=== PATIENT | male | born 1950 | race Caucasian/White ===

== ENCOUNTER 2016-07-07 18:19 | Observation (INO) | payer OTHER ==
[~2016-07-07] VITALS: Ht 165.1 cm; Wt 84.5 kg
[~2016-07-07 18:19] MED LIST: ADVAIR 250/501 DISK IH; ADVAIR HFA120 INHAL1 IH; ADVAIR HFA120 INHALA; ADVAIR HFA120 INHALA IH; ALTACE10 MG PO; Advair HFA 115/21 IH; CALCITRIOL0.25 MC1 PO; CALCITRIOL0.25 MCG PO; CALCIUM + VITA1 EACH PO; CALCIUM 500 +1 EAC2 PO; CALCIUM 600 +1 EAC4 PO; CALCIUM WITH V PO; CALCIUM600 M1 PO; CALCIUM600 MG PO; CALTRATE 6001 TABLE2 PO; CIPRO250 MG PO; COMBIVENT RESPIM4 GM IH; COMBIVENT200 INHALA IH; COUMADIN,JANTOVE1 MG PO; CYCLOBENZAPRINE10 MG PO; Combivent IH; DALIRESP500 MCG PO; DEPAKOTE ER500 MG PO; DEPAKOTE500 MG PO; DIAZEPAM10 MG PO; DIAZEPAM5 MG PO; ENDOCET 5-3251 EACH PO; FEOSOL325 MG PO; FEROSUL325 MG PO; FLOMAX0.4 MG; FLOMAX0.4 MG PO; Flagyl PO; Flomax PO; HYDROCODON-ACE1 EAC7 PO; Habitrol,Nicoderm CQ TD; IBUPROFEN800 MG PO; INDERAL40 MG PO; IRON325 M1 PO; IRON325 MG PO; KEFLEX500 MG PO; LEVAQUIN500 MG PO; LEVAQUIN750 MG PO; LEVOTHYROXINE50 MCG PO; LIDODERM 5% P1 PATCH TD; LOMOTIL TABLET1 EACH PO; LOPERAMIDE2 M1 PO; LOPERAMIDE2 MG PO; MULTIVITAMIN1 EAC2 PO; MYSOLINE50 MG PO; NEXIUM40 MG PO; NICOTINE PATCH1 EAC1 TD; NICOTROL INHALE10 MG IH; NORCO 5/3251 TABLET PO; OMEGA-3 1,0001 EACH PO; ONE-A-DAY ESSE1 EAC1 PO; OXCARBAZEPINE600 MG PO; OXYCODONE-APAP1 EAC6 PO; Omnicef PO; PEPCID40 MG PO; PERCOCET 7.51 TABLET PO; PREDNISONE10 MG PO; PREDNISONE20 MG PO; PREVALITE PACKET4 GM PO; PRIMIDONE50 MG PO; PROBIOTIC1 EAC1 PO; PROPRANOLOL HCL10 MG PO; PROPRANOLOL HCL20 MG PO; PROPRANOLOL HCL40 MG PO; PROVENTIL,2.5 MG/3 M IH; PROVENTIL2.5 MG/3 M IH; QUETIAPINE FUM200 MG PO; ROCALTROL0.25 MCG PO; Rocaltrol PO; SEROQUEL12.5 MG PO; SEROQUEL200 MG PO; SERTRALINE HCL100 MG PO; SIMVASTATIN20 MG PO; SPIRIVA1 INHALATI IH; SYNTHROID50 MCG PO; TAMSULOSIN HCL0.4 MG PO; THERAGRAN1 TABLET PO; Tylenol Regular Stre PO; VALIUM10 MG PO; VANCOMYCIN125 MG/2.5 PO; ZOCOR20 MG PO; ZOFRAN4 MG PO; ZOLOFT100 M1 PO; ZOLOFT100 MG PO; Zestril,Prinivil PO; Zithromax PO; Zocor PO; Zoloft PO
[2016-07-07 18:59] LABS: HEMATOCRIT 36.5 % (38.0-50.0); MCH 30.2 PG (29.0-34.0); MCHC 34.5 G/DL (30.0-36.0); MCV 87.5 FL (86-99); MEAN PLAT.VOLUME 8.4 uM^3 (9.0-12.4); PLATELET COUNT 132 K/uL (156-360); RBC DIS.WIDTH-CV 13.5 % (11.8-14.6); RBC DIS.WIDTH-SD 41.9 % (39-53); RED BLOOD COUNT 4.17 M/uL (4.00-5.50); WHITE BLOOD COUNT 6.5 K/uL (4.1-10.2)
[2016-07-07 19:09] LABS: CHLORIDE 106 mEq/L (99-109); POTASSIUM 4.3 mEq/L (3.7-5.4); SODIUM 136 mEq/L (136-147)
[2016-07-07 19:10] LABS: INTER. NORMALIZED RATIO 1.2; PROTHROMBIN TIME 12.1 (9.2-11.2)
[2016-07-07 19:11] LABS: GLUCOSE 132 mg/dL (70-99)
[2016-07-07 19:12] LABS: ANION GAP 12 MEQ/L (2-14)
[2016-07-07 19:14] LABS: GFR ESTIMATE (CALCULATED) 38 mL/min/
[2016-07-07 19:15] LABS: UREA NITROGEN (BUN) 29 mg/dL (9-23)
[2016-07-07 19:22] LABS: TROP-I INTERPRETATION NEGATIVE; TROPONIN-I < 0.01 ng/mL (0.0-0.30)
[2016-07-07] MEDS ORDERED: SPIRIVA1 INHALATI IH (20:27)
[2016-07-07] MEDS ORDERED: IMODIUM A-D2 M2 PO ×2 (20:30→20:31)
[2016-07-07] MEDS ORDERED: NEURONTIN100 MG PO (20:30)
[2016-07-07] MEDS ORDERED: EXCEDRIN MIGRA1 EAC3 PO (20:31)
[2016-07-07] MEDS ORDERED: OMEPRAZOLE40 M1 PO (20:31)
[2016-07-07 22:41] LABS: HDL CHOLESTEROL 30 MG/DL (Desirable>=40); LDL CHOLESTEROL 96 mg/dL (Desirable<100); NON-HDL CHOLESTEROL 142 mg/dL (Desirable<160); TOTAL CHOLESTEROL 172 mg/dL (Desirable<200); TRIGLYCERIDES 228 MG/DL (Normal: <150)
[2016-07-07 23:05] VITALS: BP 117/77
[2016-07-08 05:16] VITALS: BP 147/88
[2016-07-08 07:02] LABS: Estimated Average Glucose 120 mg/dL (70-123); HEMOGLOBIN A1c (GLYCOHEMOGLOB) 5.8 % HGB (Below 5.7)
[2016-07-08 07:10] VITALS: BP 135/84
[2016-07-08 07:38] LABS: HEMATOCRIT 36.5 % (38.0-50.0); MCH 32.2 PG (29.0-34.0); MCHC 35.3 G/DL (30.0-36.0); MEAN PLAT.VOLUME 9.6 uM^3 (9.0-12.4); PLATELET COUNT 133 K/uL (156-360); RBC DIS.WIDTH-SD 46.2 % (39-53); RED BLOOD COUNT 4.01 M/uL (4.00-5.50); WHITE BLOOD COUNT 6.5 K/uL (4.1-10.2)
[2016-07-08 08:07] LABS: ALKALINE PHOSPHATASE 85 IU/L (3-129); ANION GAP 12 MEQ/L (2-14); CHLORIDE 105 MEQ/L (99-109); GFR ESTIMATE (CALCULATED) 59 mL/min/; POTASSIUM 4.3 MEQ/L (3.7-5.4); SAMPLE HEMOLYSIS CHECK 0; SAMPLE ICTERIC CHECK 0; SAMPLE LIPEMIA CHECK 0; SODIUM 139 MEQ/L (136-147); TOTAL BILIRUBIN 0.4 MG/DL (0.0-1.0); UREA NITROGEN (BUN) 27 mg/dL (9-23)
[2016-07-08 08:17] LABS: GLUCOSE 94 mg/dL (70-99)
[2016-07-08 10:54] VITALS: BP 140/76
== END 2016-07-08 12:56 | disposition home or self-care (01) ==
LOC: EME 18:19 → 5WEST 20:51 → EDOF 20:51 → 5WEST 22:51
PROVIDERS: Emergency Medicine; Internal Medicine
DX: R42 Dizziness and giddiness (principal); R53.1 Weakness; R41.0 Disorientation, unspecified; R47.89 Other speech disturbances; R25.1 Tremor, unspecified; J44.9 Chronic obstructive pulmonary disease, unspecified; Z87.891 Personal history of nicotine dependence; I12.9 Hypertensive chronic kidney disease with stage 1 through stage 4 chronic kidney disease, or unspecified chronic kidney disease; N18.3 Chronic kidney disease, stage 3 (moderate); F31.9 Bipolar disorder, unspecified; F41.9 Anxiety disorder, unspecified; E03.9 Hypothyroidism, unspecified; E78.00 Pure hypercholesterolemia, unspecified; K21.9 Gastro-esophageal reflux disease without esophagitis; Z91.19 Patient's noncompliance with other medical treatment and regimen; Z88.0 Allergy status to penicillin; E86.0 Dehydration
CPT/HCPCS: 70450; 70551; 71020; 80048; 80053; 80061; 83036; 84484; 85027; 85610; 85730; 93005; 93880; 94660; 99202; 99281; 99285; G0378; J1644; J7030

== ENCOUNTER 2016-07-14 10:39 | Inpatient (IN) | payer OTHER ==
[~2016-07-14] VITALS: Ht 165.1 cm; Wt 87.5 kg
[~2016-07-14 10:39] MED LIST changes: +EXCEDRIN MIGRA1 EAC3 PO; +IMODIUM A-D2 M2 PO; +NEURONTIN100 MG PO; +OMEPRAZOLE40 M1 PO
[2016-07-14 11:27] LABS: HEMATOCRIT 32.6 % (38.0-50.0); MCH 29.8 PG (29.0-34.0); MCHC 32.8 G/DL (30.0-36.0); MCV 90.8 FL (86-99); MEAN PLAT.VOLUME 9.1 uM^3 (9.0-12.4); NRBC (%) 0.2 /100 WBC (0-0); PLATELET COUNT 130 K/uL (156-360); RBC DIS.WIDTH-CV 13.8 % (11.8-14.6); RBC DIS.WIDTH-SD 46.2 % (39-53); RED BLOOD COUNT 3.59 M/uL (4.00-5.50)
[2016-07-14 11:38] LABS: CHLORIDE 101 mEq/L (99-109); POTASSIUM 4.2 mEq/L (3.7-5.4); SODIUM 137 mEq/L (136-147)
[2016-07-14 11:40] LABS: GLUCOSE 87 mg/dL (70-99)
[2016-07-14 11:42] LABS: ANION GAP 12 MEQ/L (2-14)
[2016-07-14 11:44] LABS: GFR ESTIMATE (CALCULATED) 38 mL/min/
[2016-07-14 11:45] LABS: UREA NITROGEN (BUN) 24 mg/dL (9-23)
[2016-07-14 12:04] LABS: WHITE BLOOD COUNT 12.4 K/uL (4.1-10.2)
[2016-07-14] MEDS ORDERED: COMBIVENT RESPIM4 GM IH (16:16)
[2016-07-14] MEDS ORDERED: CALCIUM 600 +1 EA17 PO (16:17)
[2016-07-14] MEDS ORDERED: LOMOTIL TABLET1 EACH PO (16:19)
[2016-07-14] MEDS ORDERED: NEXIUM40 MG PO (16:21)
[2016-07-14] MEDS ORDERED: ADVAIR HFA120 INHAL1 IH (16:21)
[2016-07-14] MEDS ORDERED: SEROQUEL100 MG PO (16:28)
[2016-07-14] MEDS ORDERED: TAMSULOSIN HCL0.4 MG PO (16:29)
[2016-07-14 16:33] LABS: ADD MIUA? YES; BILIRUBIN NEGATIVE; BLOOD MODERATE; COLOR YELLOW ((YELLOW)); GLUCOSE (STRIP) NEGATIVE; KETONES NEGATIVE; LEUKOCYTES NEGATIVE; NITRITE NEGATIVE; PROTEIN (STRIP) NEGATIVE; SPECIFIC GRAVITY 1.018 (1.000-1.030); UROBILINOGEN 0.2 MG/DL (0.2-1.0)
[2016-07-14 17:04] LABS: INFLUENZA A VIRAL ANTIGEN NEGATIVE; INFLUENZA B VIRAL ANTIGEN NEGATIVE
[2016-07-14 17:16] LABS: BACTERIA NONE SEEN /HPF; EPITHELIAL CELLS RARE /HPF; HYALINE CASTS 0-5 /LPF; MUCUS NONE SEEN /LPF; UCUL ADDED? NO; WHITE BLOOD CELLS 0-5 /HPF (0-5)
[2016-07-14 20:22] VITALS: BP 148/83
[2016-07-14 23:43] VITALS: BP 121/75
[2016-07-15 03:56] VITALS: BP 132/70
[2016-07-15 05:50] LABS: HEMATOCRIT 33.6 % (38.0-50.0); MCH 30.2 PG (29.0-34.0); MCHC 32.7 G/DL (30.0-36.0); MCV 92.3 FL (86-99); NRBC (%) 0.2 /100 WBC (0-0); PLATELET COUNT 145 K/uL (156-360); RBC DIS.WIDTH-CV 13.9 % (11.8-14.6); RBC DIS.WIDTH-SD 47.3 % (39-53); RED BLOOD COUNT 3.64 M/uL (4.00-5.50); WHITE BLOOD COUNT 12.1 K/uL (4.1-10.2)
[2016-07-15 06:34] LABS: ANION GAP 11 MEQ/L (2-14); CHLORIDE 104 MEQ/L (99-109); GFR ESTIMATE (CALCULATED) 50 mL/min/; POTASSIUM 4.6 MEQ/L (3.7-5.4); SAMPLE HEMOLYSIS CHECK 0; SAMPLE ICTERIC CHECK 0; SAMPLE LIPEMIA CHECK 0; SODIUM 140 MEQ/L (136-147); UREA NITROGEN (BUN) 24 mg/dL (9-23)
[2016-07-15 06:36] LABS: GLUCOSE 134 mg/dL (70-99)
[2016-07-15 07:30] VITALS: BP 144/88
[2016-07-15 12:30] VITALS: BP 147/69
[2016-07-15 15:40] VITALS: BP 135/72
[2016-07-15 18:50] LABS: INTER. NORMALIZED RATIO 1.3; PROTHROMBIN TIME 13.4 (9.2-11.2); PTT 33.8 (25-32)
[2016-07-15 19:25] VITALS: BP 115/71
[2016-07-16 01:51] VITALS: BP 111/66
[2016-07-16 06:27] LABS: HEMATOCRIT 34.4 % (38.0-50.0); MCHC 32.3 G/DL (30.0-36.0); MEAN PLAT.VOLUME 9.5 uM^3 (9.0-12.4); NRBC (%) 0.5 /100 WBC (0-0); PLATELET COUNT 156 K/uL (156-360); RBC DIS.WIDTH-SD 47.8 % (39-53); WHITE BLOOD COUNT 9.7 K/uL (4.1-10.2)
[2016-07-16 06:51] LABS: ANION GAP 10 MEQ/L (2-14); CHLORIDE 102 MEQ/L (99-109); GFR ESTIMATE (CALCULATED) 54 mL/min/; GLUCOSE 128 mg/dL (70-99); POTASSIUM 4.3 MEQ/L (3.7-5.4); SAMPLE HEMOLYSIS CHECK 0; SAMPLE ICTERIC CHECK 0; SAMPLE LIPEMIA CHECK 0; SODIUM 140 MEQ/L (136-147); UREA NITROGEN (BUN) 33 mg/dL (9-23)
[2016-07-16 08:05] VITALS: BP 157/75
[2016-07-16 08:57] LABS: INTERNAL CONTROL VALID? YES
[2016-07-16] MEDS ORDERED: PREDNISONE10 MG PO (14:14)
[2016-07-16] MEDS ORDERED: LEVAQUIN500 MG PO (14:14)
== END 2016-07-16 15:08 | disposition home or self-care (01) | DRG 190 ==
LOC: EME 10:39 → 4EAST 15:08 → EDOF 15:08 → 4EAST 16:45 → 5SOUTH 07-16 01:50
PROVIDERS: Emergency Medicine; Hospitalist; Internal Medicine; Internal Medicine Pulmonary Disease
DX: J44.0 Chronic obstructive pulmonary disease with (acute) lower respiratory infection (principal); J18.0 Bronchopneumonia, unspecified organism; J96.20 Acute and chronic respiratory failure, unspecified whether with hypoxia or hypercapnia; J44.1 Chronic obstructive pulmonary disease with (acute) exacerbation; R04.2 Hemoptysis; N17.9 Acute kidney failure, unspecified; I12.9 Hypertensive chronic kidney disease with stage 1 through stage 4 chronic kidney disease, or unspecified chronic kidney disease; N18.3 Chronic kidney disease, stage 3 (moderate); G47.33 Obstructive sleep apnea (adult) (pediatric); E78.5 Hyperlipidemia, unspecified; K21.9 Gastro-esophageal reflux disease without esophagitis; G40.909 Epilepsy, unspecified, not intractable, without status epilepticus; F31.9 Bipolar disorder, unspecified; F41.9 Anxiety disorder, unspecified; E03.9 Hypothyroidism, unspecified; Z96.651 Presence of right artificial knee joint; Z99.81 Dependence on supplemental oxygen; Z88.0 Allergy status to penicillin; Z88.5 Allergy status to narcotic agent; Z87.891 Personal history of nicotine dependence
CPT/HCPCS: 71020; 71250; 78582; 80048; 81003; 83605; 85027; 85610; 85730; 87040; 87449; 87502; 93005; 93970; 94640; 94640 76; 94760; 94799; 99202; 99281; 99285; A9540; A9567; J1650; J1956; J2920; J2930; J3370

== ENCOUNTER → 2016-11-23 | Outpatient (CLI) | payer OTHER ==
[~2016-11-23] VITALS: Ht 165.1 cm; Wt 83.5 kg
[~2016-11-23] MED LIST changes: +ANTI-DIARRHEA2 MG PO; +CALCIUM 600 +1 EA16 PO; +CALCIUM 600 +1 EA17 PO; +QUESTRAN PACKET4 GM PO; +SEROQUEL100 MG PO
== END | disposition home or self-care (01) ==
LOC: AMB 11:30
DX: K22.70 Barrett's esophagus without dysplasia (principal); K44.9 Diaphragmatic hernia without obstruction or gangrene; Z86.018 Personal history of other benign neoplasm; R10.13 Epigastric pain; Z90.49 Acquired absence of other specified parts of digestive tract; Z86.010 Personal history of colon polyps; J44.9 Chronic obstructive pulmonary disease, unspecified; K21.9 Gastro-esophageal reflux disease without esophagitis; G40.909 Epilepsy, unspecified, not intractable, without status epilepticus; E78.5 Hyperlipidemia, unspecified; E03.9 Hypothyroidism, unspecified; F31.81 Bipolar II disorder; E20.9 Hypoparathyroidism, unspecified; Z88.0 Allergy status to penicillin; Z88.5 Allergy status to narcotic agent
CPT/HCPCS: 88305; 88313; 88342 TC

== ENCOUNTER 2016-12-15 12:40 | Inpatient (IN) | payer OTHER ==
[~2016-12-15] VITALS: Ht 165.1 cm; Wt 85.0 kg
[2016-12-15 13:53] LABS: HEMATOCRIT 41.5 % (38.0-50.0); MCH 31.2 PG (29.0-34.0); MCHC 34.5 G/DL (30.0-36.0); MCV 90.4 FL (86-99); PLATELET COUNT 172 K/uL (156-360); RBC DIS.WIDTH-CV 13.2 % (11.8-14.6); RBC DIS.WIDTH-SD 43.2 % (39-53); RED BLOOD COUNT 4.59 M/uL (4.00-5.50); WHITE BLOOD COUNT 9.9 K/uL (4.1-10.2)
[2016-12-15 14:01] LABS: CHLORIDE 109 mEq/L (99-109); POTASSIUM 4.1 mEq/L (3.7-5.4); SODIUM 132 mEq/L (136-147)
[2016-12-15 14:03] LABS: GLUCOSE 102 mg/dL (70-99)
[2016-12-15 14:04] LABS: ANION GAP 14 MEQ/L (2-14)
[2016-12-15 14:06] LABS: GFR ESTIMATE (CALCULATED) 30 mL/min/
[2016-12-15 14:07] LABS: UREA NITROGEN (BUN) 56 mg/dL (9-23)
[2016-12-15 14:12] LABS: TROP-I INTERPRETATION NEGATIVE; TROPONIN-I < 0.01 ng/mL (0.0-0.30)
[2016-12-15 18:30] VITALS: BP 131/73
[2016-12-15 19:33] LABS: C DIFF TOXIN NEGATIVE (NEGATIVE)
[2016-12-15 19:48] LABS: PROBE CHECK PASS; SPECIMEN PROCESSING CONTROL PASS
[2016-12-15 20:00] VITALS: BP 130/71
[2016-12-15 20:43] LABS: TROP-I INTERPRETATION NEGATIVE; TROPONIN-I < 0.01 ng/mL (0.0-0.30)
[2016-12-15 23:55] VITALS: BP 129/69
[2016-12-16 02:37] LABS: TROP-I INTERPRETATION NEGATIVE; TROPONIN-I < 0.01 ng/mL (0.0-0.30)
[2016-12-16 04:00] VITALS: BP 146/78
[2016-12-16 04:58] LABS: CHLORIDE 109 mEq/L (99-109); POTASSIUM 3.4 mEq/L (3.7-5.4); SODIUM 137 mEq/L (136-147)
[2016-12-16 04:59] LABS: GLUCOSE 107 mg/dL (70-99)
[2016-12-16 05:01] LABS: ANION GAP 11 MEQ/L (2-14)
[2016-12-16 05:03] LABS: HEMATOCRIT 33.2 % (38.0-50.0); MCH 31.5 PG (29.0-34.0); MCHC 34.9 G/DL (30.0-36.0); MCV 90.2 FL (86-99); MEAN PLAT.VOLUME 9.1 uM^3 (9.0-12.4); PLATELET COUNT 145 K/uL (156-360); RBC DIS.WIDTH-CV 13.2 % (11.8-14.6); RBC DIS.WIDTH-SD 43.5 % (39-53); RED BLOOD COUNT 3.68 M/uL (4.00-5.50); WHITE BLOOD COUNT 8.3 K/uL (4.1-10.2)
[2016-12-16 05:04] LABS: UREA NITROGEN (BUN) 38 mg/dL (9-23)
[2016-12-16 05:15] LABS: GFR ESTIMATE (CALCULATED) 59 mL/min/
[2016-12-16 08:12] VITALS: BP 140/81
[2016-12-16 11:22] VITALS: BP 158/79
[2016-12-16 16:30] VITALS: BP 154/71
[2016-12-16 19:21] VITALS: BP 169/76
[2016-12-16 22:17] LABS: EOSINOPHIL (%) 0.2 % (0-5); HEMATOCRIT 34.9 % (38.0-50.0); IMMATURE GRANULOCYTE (%) 0.9 % (0.0-0.7); IMMATURE GRANULOCYTE COUNT 0.1 K/uL; INSTRUMENT ABS NEUTROPHIL CT 4.1 K/uL; LYMPHOCYTE COUNT 1.2 K/uL (1.0-2.8); MCH 31.2 PG (29.0-34.0); MCHC 35.2 G/DL (30.0-36.0); MCV 88.6 FL (86-99); MEAN PLAT.VOLUME 8.9 uM^3 (9.0-12.4); MONOCYTE COUNT 0.5 K/uL (0-0.8); NEUTROPHIL COUNT 4.1 K/uL (1.8-6.4); PLATELET COUNT 158 K/uL (156-360); RBC DIS.WIDTH-SD 41.9 % (39-53); RED BLOOD COUNT 3.94 M/uL (4.00-5.50); WHITE BLOOD COUNT 5.9 K/uL (4.1-10.2)
[2016-12-16 22:34] LABS: ANION GAP 12 MEQ/L (2-14); CHLORIDE 104 MEQ/L (99-109); POTASSIUM 3.6 MEQ/L (3.7-5.4); SAMPLE HEMOLYSIS CHECK 0; SAMPLE ICTERIC CHECK 0; SAMPLE LIPEMIA CHECK 0; SODIUM 136 MEQ/L (136-147); TOTAL BILIRUBIN 0.5 MG/DL (0.0-1.0)
[2016-12-16 22:40] LABS: ALKALINE PHOSPHATASE 61 IU/L (3-129); GFR ESTIMATE (CALCULATED) 59 mL/min/; GLUCOSE 133 mg/dL (70-99); UREA NITROGEN (BUN) 28 mg/dL (9-23)
[2016-12-16 23:20] VITALS: BP 125/85
[2016-12-17 03:50] VITALS: BP 146/87
[2016-12-17 06:22] LABS: HEMATOCRIT 34.7 % (38.0-50.0); MCH 31.7 PG (29.0-34.0); MCHC 35.4 G/DL (30.0-36.0); MCV 89.4 FL (86-99); MEAN PLAT.VOLUME 9.4 uM^3 (9.0-12.4); PLATELET COUNT 189 K/uL (156-360); RBC DIS.WIDTH-CV 13.2 % (11.8-14.6); RBC DIS.WIDTH-SD 42.6 % (39-53); RED BLOOD COUNT 3.88 M/uL (4.00-5.50); WHITE BLOOD COUNT 6.3 K/uL (4.1-10.2)
[2016-12-17 06:42] LABS: ANION GAP 14 MEQ/L (2-14); CHLORIDE 103 MEQ/L (99-109); GFR ESTIMATE (CALCULATED) 50 mL/min/; GLUCOSE 117 mg/dL (70-99); POTASSIUM 3.7 MEQ/L (3.7-5.4); SAMPLE HEMOLYSIS CHECK 0; SAMPLE ICTERIC CHECK 0; SAMPLE LIPEMIA CHECK 0; SODIUM 137 MEQ/L (136-147); UREA NITROGEN (BUN) 29 mg/dL (9-23)
[2016-12-17 09:52] VITALS: BP 128/80
[2016-12-17 12:28] VITALS: BP 135/72
[2016-12-17 16:06] VITALS: BP 139/88
[2016-12-17 19:00] VITALS: BP 140/66
[2016-12-17 23:00] VITALS: BP 125/68
[2016-12-18 03:45] VITALS: BP 136/73
[2016-12-18 04:54] LABS: CHLORIDE 105 mEq/L (99-109); POTASSIUM 3.6 mEq/L (3.7-5.4); SODIUM 139 mEq/L (136-147)
[2016-12-18 04:56] LABS: GLUCOSE 106 mg/dL (70-99)
[2016-12-18 04:57] LABS: ANION GAP 12 MEQ/L (2-14)
[2016-12-18 05:00] LABS: GFR ESTIMATE (CALCULATED) > 59 mL/min/
[2016-12-18 05:01] LABS: UREA NITROGEN (BUN) 21 mg/dL (9-23)
[2016-12-18 07:22] VITALS: BP 123/85
[2016-12-18 11:50] VITALS: BP 121/80
[2016-12-18 16:42] VITALS: BP 146/81
[2016-12-18 19:00] VITALS: BP 124/95
[2016-12-18 23:00] VITALS: BP 120/67
[2016-12-19] VITALS (7 sets, daily range): BP systolic 127–145; BP diastolic 68–88
[2016-12-19 08:27] LABS: ANION GAP 7 MEQ/L (2-14); CHLORIDE 104 MEQ/L (99-109); GFR ESTIMATE (CALCULATED) > 59 mL/min/; GLUCOSE 104 mg/dL (70-99); POTASSIUM 3.3 MEQ/L (3.7-5.4); SAMPLE HEMOLYSIS CHECK 0; SAMPLE ICTERIC CHECK 0; SAMPLE LIPEMIA CHECK 0; SODIUM 139 MEQ/L (136-147); UREA NITROGEN (BUN) 19 mg/dL (9-23)
[2016-12-20 02:06] VITALS: BP 131/63
[2016-12-20 06:57] LABS: ANION GAP 11 MEQ/L (2-14); CHLORIDE 105 MEQ/L (99-109); GFR ESTIMATE (CALCULATED) > 59 mL/min/; GLUCOSE 104 mg/dL (70-99); POTASSIUM 3.8 MEQ/L (3.7-5.4); SAMPLE HEMOLYSIS CHECK 0; SAMPLE ICTERIC CHECK 0; SAMPLE LIPEMIA CHECK 0; SODIUM 142 MEQ/L (136-147); UREA NITROGEN (BUN) 11 mg/dL (9-23)
[2016-12-20 07:30] VITALS: BP 135/77
[2016-12-20 11:29] VITALS: BP 128/68
[2016-12-20 16:33] VITALS: BP 126/80
[2016-12-21 00:05] VITALS: BP 128/64
[2016-12-21 07:50] VITALS: BP 140/63
[2016-12-21 16:20] VITALS: BP 138/65
[2016-12-22 00:40] VITALS: BP 149/75
[2016-12-22 07:54] VITALS: BP 136/71
== END 2016-12-22 13:14 | disposition home health service (06) | DRG 683 ==
LOC: EME 12:40 → 4EAST 15:06 → EDOF 15:06 → ENRESERV 15:07 → 4EAST 18:13 → ENRESERV 12-16 08:59 → CANRESERV 12-16 08:59 → ENRESERV 12-16 09:00 → CANRESERV 12-16 09:00 → ENRESERV 12-19 11:28 → 5EAST 12-19 13:24 → ENPENDDIS 12-22 → 5EAST 12-22 13:14 → EDPENDDISTM 12-22 13:15
PROVIDERS: Emergency Medicine; Hospitalist; Internal Medicine
DX: N17.9 Acute kidney failure, unspecified (principal); K56.60 Unspecified intestinal obstruction; J96.11 Chronic respiratory failure with hypoxia; Z99.81 Dependence on supplemental oxygen; E86.0 Dehydration; E86.1 Hypovolemia; I13.0 Hypertensive heart and chronic kidney disease with heart failure and stage 1 through stage 4 chronic kidney disease, or unspecified chronic kidney disease; N18.3 Chronic kidney disease, stage 3 (moderate); I50.9 Heart failure, unspecified; I95.9 Hypotension, unspecified; E87.1 Hypo-osmolality and hyponatremia; E87.2 Acidosis; E87.6 Hypokalemia; J44.9 Chronic obstructive pulmonary disease, unspecified; G47.33 Obstructive sleep apnea (adult) (pediatric); D64.9 Anemia, unspecified; K59.1 Functional diarrhea; K21.0 Gastro-esophageal reflux disease with esophagitis; E03.9 Hypothyroidism, unspecified; F31.9 Bipolar disorder, unspecified; F41.9 Anxiety disorder, unspecified; E78.5 Hyperlipidemia, unspecified; R56.9 Unspecified convulsions; Z68.30 Body mass index [BMI] 30.0-30.9, adult; Z87.01 Personal history of pneumonia (recurrent); Z87.891 Personal history of nicotine dependence; Z88.0 Allergy status to penicillin; Z90.49 Acquired absence of other specified parts of digestive tract; Z96.651 Presence of right artificial knee joint
CPT/HCPCS: 71010; 74020; 74176; 80048; 80053; 83605; 84484; 85025; 85027; 87040; 87493; 87506; 87801; 93005; 94640; 94640 76; 94799; 97530 GO; 97530 GP; 99202; 99281; 99284; J1644; J2405; J3480; J7042; J7644; S0028

== ENCOUNTER 2017-08-10 13:44 | Emergency (ER) | payer OTHER ==
[~2017-08-10] VITALS: Ht 165.1 cm; Wt 91.8 kg
[2017-08-10] MEDS ORDERED: ULTRAM50 MG PO (16:01)
[2017-08-10] MEDS ORDERED: FLEXERIL10 MG PO (16:01)
[2017-08-10 17:07] VITALS: BP 145/82
== END 2017-08-10 17:09 | disposition home or self-care (01) ==
LOC: EME 13:44
DX: S70.02XA Contusion of left hip, initial encounter (principal); S82.152A Displaced fracture of left tibial tuberosity, initial encounter for closed fracture; M16.12 Unilateral primary osteoarthritis, left hip; W11.XXXA Fall on and from ladder, initial encounter; I11.0 Hypertensive heart disease with heart failure; I50.9 Heart failure, unspecified; J44.9 Chronic obstructive pulmonary disease, unspecified; K21.9 Gastro-esophageal reflux disease without esophagitis; E05.90 Thyrotoxicosis, unspecified without thyrotoxic crisis or storm; R56.9 Unspecified convulsions; F32.9 Major depressive disorder, single episode, unspecified; F31.9 Bipolar disorder, unspecified; Z87.891 Personal history of nicotine dependence; Z96.651 Presence of right artificial knee joint; Z90.49 Acquired absence of other specified parts of digestive tract; Z88.5 Allergy status to narcotic agent; Z88.0 Allergy status to penicillin
CPT/HCPCS: 73502; 73564; 99281; 99284